=== PATIENT | male | born 1995 | race Caucasian/White ===

== ENCOUNTER 2019-01-08 22:04 | Emergency (ER) | payer SELFPAY ==
[2019-01-08 22:13] VITALS: TEMP 98.3; BMI 30.9
[2019-01-09 00:11] VITALS: BP 149/108; PULSE 84
--- NOTE | 2019-01-09 00:18 | PDOC ---
Documentation entered by Robina Mock SCRIBE, acting as scribe for Chelita Baker MD. Chelita Baker MD: This documentation has been prepared by the teresoeNish Aiswarya, SCRIBE, under my direction and personally reviewed by me in its entirety. I confirm that the documentation accurately reflects all work, treatment, procedures, and medical decision making performed by me. History of Present Illness - General Chief Complaint: Injury Stated Complaint: LACERATION RIGHT THUMB AT WORK Time Seen by Provider: 01/08/19 22:06 History Source: Patient Exam Limitations: No Limitations - History of Present Illness Initial Comments: 01/08/19 23:30 The patient is a 23 year old male, with no significant PMH, who presents to the emergency department with a right hand laceration that occurred today. The patient states he works at [employer] and was washing the knives in the kitchen when he accidently cut the right thumb with one of the knives. Patient reports persistent bleeding despite direct pressure. He also notes numbness to the tip of the thumb but has full movement. No nail damage note. Denies any neurological deficit. Denies any tingling. Denies pain on flexion and extension Allergies: NKDA Past surgical history: None reported Social history: None reported PCP: None reported Past History - Past Medical History Allergies/Adverse Reactions: Allergies Allergy/AdvReac Type Severity Reaction Status Date / Time No Known Allergies Allergy Verified 01/08/19 22:07 Home Medications: Ambulatory Orders NK [No Known Home Medication] 01/08/19 COPD: No Other medical history: DENIES - Immunization History Immunization Up to Date: Yes - Suicide/Smoking/Psychosocial Hx Smoking History: Never smoked Have you smoked in the past 12 months: No Information on smoking cessation initiated: No Hx Alcohol Use: Yes (SOCIAL) Drug/Substance Use Hx: No Review of Systems - Review of Systems Able to Perform ROS?: Yes Comments:: 01/08/19 23:31 GENERAL/CONSTITUTIONAL: No fever or chills. No weakness. HEAD, EYES, EARS, NOSE AND THROAT: No change in vision. No ear pain or discharge. No sore throat. CARDIOVASCULAR: No chest pain or shortness of breath. RESPIRATORY: No cough, wheezing, or hemoptysis. GASTROINTESTINAL: No nausea, vomiting, diarrhea or constipation. GENITOURINARY: No dysuria, frequency, or change in urination. MUSCULOSKELETAL: No joint or muscle swelling or pain. No neck or back pain. SKIN: +right thumb laceration NEUROLOGIC: No headache, vertigo, loss of consciousness, or change in strength/ sensation. ENDOCRINE: No increased thirst. No abnormal weight change. HEMATOLOGIC/LYMPHATIC: No anemia, easy bleeding, or history of blood clots. ALLERGIC/IMMUNOLOGIC: No hives or skin allergy. *Physical Exam - Vital Signs Last Vital Signs Temp Pulse Resp BP Pulse Ox 98.3 F 89 18 153/106 H 97 01/08/19 22:08 01/08/19 22:08 01/08/19 22:08 01/08/19 22:08 01/08/19 22:08 - Physical Exam Comments: 01/08/19 23:31 GENERAL: Awake, alert, and fully oriented, in no acute distress HEAD: No signs of trauma LUNGS: Breath sounds equal, clear to auscultation bilaterally. No wheezes, and no crackles HEART: Regular rate and rhythm, normal S1 and S2, no murmurs, rubs or gallops EXTREMITIES: Normal range of motion, no edema. No clubbing or cyanosis. No cords, erythema, or tenderness NEUROLOGICAL: Cranial nerves II through XII grossly intact. Normal speech, normal gait SKIN:+2 cm full thickness linear laceration at the IP surface of the flexor palmar surface of right thumb . Full motor function intact. Decrease fine touch sensation at the tip. No nail bed damage note. Procedures - Laceration/Wound Repair Right 1st digit Wound Length: to 2.5 cm Wound Explored: clean Wound's Depth, Shape: linear Irrigated w/ Saline: Yes Betadine Prep: No (alcohol/hibiclens ) Anesthesia: 1% Lidocaine Amount of Anesthetic (ccs): 2 Wound Repaired With: Sutures Suture Size/Type: 5:0 Number of Sutures: 3 Layer Closure: No Sterile Dressing Applied: Yes Splint Applied: No Progress: Area of the right thumb laceration cleansed using Hibiclens/ethanol and area draped. 2 mL of 1% lidocaine infiltrated into wound for local anesthesia. Wound irrigated using 40 mL of sterile normal saline. Wound edges approximated and wound closed using 3 interrupted sutures of 5-0 nylon. Bacitracin and sterile dressing applied. Patient tolerated procedure well *DC/Admit/Observation/Transfer Diagnosis at time of Disposition: Laceration of thumb Qualifiers: Encounter type: initial encounter Damage to nail status: without damage Foreign body presence: without foreign body Laterality: right Qualified Code(s) : S61.011A - Laceration without foreign body of right thumb without damage to nail, initial encounter - Discharge Dispostion Disposition: HOME Condition at time of disposition: Stable - Referrals - Patient Instructions Printed Discharge Instructions: How to Care for a Laceration After Repair Additional Instructions: Keep original dressing in place as dry as possible for the next 2 days (see work note) After 2 days, remove original bandage; use protective covering such as Band-Aid or gauze during day/open at night Apply bacitracin or Neosporin ointment twice a day to wound surface Return to ER if wound is red/swollen/more painful Have sutures removed on Thursday, January 15 Plan to follow-up with your medical doctor within the next 1-2 weeks as discussed - Post Discharge Activity Forms/Work/School Notes: Back to Work
== END 2019-01-09 00:19 | disposition home or self-care (01) ==
LOC: FER 22:04
PROC: 0HQFXZZ Repair Right Hand Skin, External Approach (ICD-10-PCS; principal; 2019-01-08)
DX: S61.011A Laceration without foreign body of right thumb without damage to nail, initial encounter (principal); W26.0XXA Contact with knife, initial encounter; Y93.G1 Activity, food preparation and clean up; Y92.512 Supermarket, store or market as the place of occurrence of the external cause; Y99.0 Civilian activity done for income or pay
CPT/HCPCS: 99281-25

== ENCOUNTER 2019-01-15 08:21 | Emergency (ER) | payer OTHER ==
[2019-01-15 08:27] VITALS: BP 147/112; PULSE 76; TEMP 98; BMI 30.9
--- NOTE | 2019-01-15 08:33 | PDOC ---
Suture Removal/Wound Check HPI - History of Present Illness Chief Complaint: Suture/Staple Removal(Here) Stated Complaint: SUTURE REMOVAL Time Seen by Provider: 01/15/19 08:30 History Source: Yes: Patient Exam Limitations: Yes: No Limitations Treated at: [facility] Date of Last ED visit: 01/08/19 - Previous ED Treatment Type of procedure performed on last visit: Yes: Laceration Repair Tetanus Immunization: Yes: Up to Date Antibiotics Prescribed: No - Onset of Previous Treatment Comment:: 01/15/19 08:30 laceration to the thum repaired on 01/08 Past History - Past Medical History Allergies/Adverse Reactions: Allergies Allergy/AdvReac Type Severity Reaction Status Date / Time No Known Allergies Allergy Verified 01/15/19 08:22 Home Medications: Ambulatory Orders NK [No Known Home Medication] 01/08/19 COPD: No Other medical history: DENIES - Immunization History Immunization Up to Date: Yes - Suicide/Smoking/Psychosocial Hx Smoking History: Never smoked Have you smoked in the past 12 months: No Information on smoking cessation initiated: No Hx Alcohol Use: Yes (SOCIAL) Drug/Substance Use Hx: No Suture Removal/Wound Check PE - Physical Exam Laceration/Wound Check Symptoms: reports: Improved Comments: 01/15/19 08:32 would well healed with three sutures in place. Current Severity Level: None Maximum Severity Level: None (wound well healed with three sutures in place. No redness, discharge or swelling.) *Physical Exam - Vital Signs Last Vital Signs Temp Pulse Resp BP Pulse Ox 98 F 76 20 147/112 H 100 01/15/19 08:21 01/15/19 08:21 01/15/19 08:21 01/15/19 08:21 01/15/19 08:21 Medical Decision Making - Medical Decision Making 01/15/19 08:32 pt presents to the ED for suture removal. Wound well healed. Sutures removed in the ED. Will discharge home. *DC/Admit/Observation/Transfer Diagnosis at time of Disposition: Laceration of thumb Qualifiers: Encounter type: subsequent encounter Damage to nail status: without damage Foreign body presence: without foreign body Laterality: right Qualified Code(s) : S61.011D - Laceration without foreign body of right thumb without damage to nail, subsequent encounter - Discharge Dispostion Disposition: HOME Condition at time of disposition: Good Decision to Admit order: No - Referrals - Patient Instructions Printed Discharge Instructions: DI for Suture Removal - Post Discharge Activity
== END 2019-01-15 08:35 | disposition home or self-care (01) ==
LOC: FER 08:21
DX: Z48.02 Encounter for removal of sutures (principal)
CPT/HCPCS: 99281-25